=== PATIENT | female | born 1960 | race Caucasian/White ===

== ENCOUNTER → 2019-05-10 12:31 | Outpatient (CLI) | payer OTHER ==
[2016-08-05 07:38] VITALS: BMI 40.7
[~2019-05-10 12:31] MED LIST: BUMEX 1 MG TAB1 MG PO; CELEXA20 MG PO; GLUCOPHAGE500 MG PO; HYDROCODONE-APA1 TAB PO; NEXIUM40 MG PO; NOLVADEX10 M1 PO; NORVASC5 MG PO; OXYBUTYNIN CHLOR5 MG PO; PLAVIX75 MG PO; POTASSIUM CHLO10 ME1; TIROSINT125 MCG PO; WELLBUTRIN75 MG PO
== END | disposition home or self-care (01) ==
LOC: D.LABREF 12:31
PROVIDERS: ATTEND Otolaryngology
DX: J32.3 Chronic sphenoidal sinusitis (principal)